=== PATIENT | male | born 1995 | race Caucasian/White ===

== ENCOUNTER 2022-10-25 20:32 | Emergency (ER) | payer BC ==
[2022-10-25] MEDS ORDERED: Diphtheria,Pertussis(Acell),Tetanus Vaccine 0.5 ML Syringe IM ONE (21:01)
== END 2022-10-25 21:15 | disposition home or self-care (01) ==
LOC: MERGE 20:32 → VM.ED 20:32
DX: S61.432A Puncture wound without foreign body of left hand, initial encounter (principal); S61.237A Puncture wound without foreign body of left little finger without damage to nail, initial encounter; Z88.0 Allergy status to penicillin; Z23 Encounter for immunization; W45.0XXA Nail entering through skin, initial encounter
CPT/HCPCS: 90471; 90715; 99282; 99283